=== PATIENT | male | born 1985 | race Two or more races ===

== ENCOUNTER 2017-07-06 09:12 | Day surgery (SDC) | payer BC ==
[~2017-07-06] VITALS: Ht 175.3 cm; Wt 68.0 kg
[2017-07-06] VITALS (9 sets, daily range): BP systolic 108–125; BP diastolic 56–75
[~2017-07-06 09:12] MED LIST: LR 1000ml 1,000 ML IVLG SCH
[2017-07-06] MEDS ORDERED: NKM (09:44)
--- NOTE | 2017-07-06 09:58 | Anethesia Preoperative Eval ---
Anesthesia Pre-op PMH/ROS General Date of Evaluation: Jul 06, 2017 Time of Evaluation: 09:55 Anesthesiologist: patt ASA Score: ASA 2 Mallampati Score Class I : Soft palate, uvula, fauces, pillars visible Class II: Soft palate, uvula, fauces visible Class III: Soft palate, base of uvula visible Class IV: Only hard plate visible Mallampati Classification: Class II Surgeon: clint Diagnosis: abdominal pain Surgical Procedure: egd/colonoscopy Anesthesia History: none Social History: smoking - nonsmoker Family History: no anesthesia problems Allergies: Coded Allergies: No Known Allergies (Unverified , 07/05/17) Medications: see eMAR Anesthesia Pre-op Phys. Exam Physician Exam Constitutional: NAD Neurologic: CN 2-12 intact Cardiovascular: RRR Respiratory: CTA Gastrointestinal: S/NT/ND Airway Exam Mallampati Score: Class II MO: full Neck: supple TMD: 2fb ROM: full Teeth: intact Anesthesia Pre-op A/P Risk Assessment & Plan Assessment: asa2 Plan: mac Status Change Before Surgery: No Pre-Antibiotics Drug: HEIKE Rodriguez Jul 06, 2017 09:58
[2017-07-06] MEDS ORDERED: Propofol 200mg/20ml IV ONE (10:00)
[2017-07-06] MEDS ORDERED: Atropine Inj 1mg/10ml Syr IV PRN (10:00)
[2017-07-06] MEDS ORDERED: LR 1000ml ONE (10:00)
[2017-07-06] MEDS ORDERED: Midazolam 2mg/2ml Inj IVP PRN (10:00)
[2017-07-06] MEDS ORDERED: Lidocaine 1% MPF 10mg/ml 5ml ONE (10:00)
[2017-07-06] MEDS ORDERED: DiphenhydrAMINE 50mg/ml Inj IVP PRN (10:00)
[2017-07-06] MEDS ORDERED: fentaNYL 100 mcg/2 mL IV PRN (10:00)
--- NOTE | 2017-07-06 10:24 | Short Stay Surgery H&P ---
History of Present Illness History of Present Illness Chief Complaint see attached H&P HPI Maximiliano Mendoza is a 32 year old male who was admitted on for Abdominal Pain Patient History Allergies: Coded Allergies: No Known Allergies (Unverified , 07/05/17) PAST MEDICAL HISTORY: Past Surgeries: Social History: Medication History Scheduled No Known Medications* (NKM - No Known Medications*), 0 ., (Reported) Plan Attestation Are the patient's medical conditions optimized for surgery? SILKE PRICE Jul 06, 2017 10:24
--- NOTE | 2017-07-06 10:25 | Pre-Procedure Note/Attestation ---
Pre-Procedure Note/Attestation Complete Prior to Procedure Planned Procedure: not applicable Procedure Narrative: Endoscopy and colonoscopy Indications for Procedure Pre-Operative Diagnosis: abd pain Attestation I attest that I discussed the nature of the procedure; its benefits; risks and complications; and alternatives (and the risks and benefits of such alternatives ), prior to the procedure, with the patient (or the patient's legal medical service representative). I attest that, if there was a reasonable possibility of needing a blood transfusion, the patient (or the patient's legal medical service representative) was given the [facility] standardized written summary, pursuant to the Wilver Armando Blood Safety Act ([place] Health and Safety Code # 1645, as amended). I attest that I re-evaluated the patient just prior to the surgery and that there has been no change in the patient's H&P, except as documented below: SILKE PRICE Jul 06, 2017 10:25
--- NOTE | 2017-07-06 12:44 | Immediate Post-Op Evaluation ---
Immediate Post-Op Evalulation Immediate Post-Op Evalulation Procedure: egd/colonoscopy Date of Evaluation: Jul 06, 2017 Time of Evaluation: 11:45 IV Fluids: 625ml lr Blood Products: none Estimated Blood Loss: negligible Blood Pressure Systolic: 125 Blood Pressure Diastolic: 56 Pulse Rate: 80 Respiratory Rate: 18 O2 Sat by Pulse Oximetry: 100 Temperature (Fahrenheit): 98.3 Pain Score (1-10): 0 Nausea: No Vomiting: No Complications none Patient Status: awake, reacts, patent Hydration Status: adequate Drug: HEIKE Rodriguez Jul 06, 2017 12:44
--- NOTE | 2017-07-06 12:46 | 48 Hour Post Anesthesia Eval ---
Post Anesthesia Evaluation Procedure: egd/colonoscopy Date of Evaluation: Jul 06, 2017 Time of Evaluation: 11:47 Blood Pressure Systolic: 117 0: 69 Pulse Rate: 84 Respiratory Rate: 18 Temperature (Fahrenheit): 98.3 O2 Sat by Pulse Oximetry: 100 Airway: patent Nausea: No Vomiting: No Pain Intensity: 0 Hydration Status: adequate Cardiopulmonary Status: stable Mental Status/LOC: patient returned to baseline Post-Anesthesia Complications: none Follow-up care needed: N/A HEIKE CANCINO Jul 06, 2017 12:46
--- NOTE | 2017-07-07 06:41 | Endoscopy Procedure Note ---
Endoscopy Procedure Note General Indication for Procedure: abd pain Procedures Performed: EGD, colonoscopy Operative Findings/Diagnosis: nl egd, mild granular TI, dim descending polyp Specimen: yes Pt Tolerated Procedure Well: Yes Estimated Blood Loss: none Anesthesia Anesthesiologist: Marvin Vargas Anesthesia: MAC Medications Medication Given: see anesthesia record Inserted Devices Implant(s) used?: No GI Core Measures 50 yrs or older w/o bx or poly: Not Applicable 10yrs. F/U not recommended: Not Applicable If not recommended, why?: SILKE PRICE Jul 07, 2017 06:41
--- NOTE | 2017-07-07 06:43 | Brief Operative Note ---
Immediate Post Operative Note Operative Note Chief Complaint: abd pain Pre-op Diagnosis: abd pain Procedure: EGD/Colon Post-op Diagnosis: normal EGD mildly granular TI - bx dim desc colon polyp Surgeon: taj Anesthesiologist: Marvin Vargas Specimen: yes Complications: none Condition: stable Fluids: recorded Estimated Blood Loss: none Drains: none Implant(s) used?: No SILKE PRICE Jul 07, 2017 06:43
--- NOTE | 2017-07-07 16:15 | Procedure Note ---
DATE OF PROCEDURE: 07/06/2017 NOTE: CANCELED DICTATION PROCEDURE: Upper gastrointestinal endoscopy with biopsy as well as colonoscopy with biopsy. SURGEON: Amy Love M.D. ANESTHESIA: Please see the separate anesthesiologist notes for details. PRE-ENDOSCOPIC DIAGNOSIS: Abdominal pain. POST-ENDOSCOPIC DIAGNOSES: 1. Normal upper endoscopy, status post biopsy. 2. Patchy mild granularity seen in the terminal ileum of doubtful significance, status post biopsy. 3. Diminutive descending colon polyp removed by biopsy. DESCRIPTION OF PROCEDURE: The procedure, its risks, indications, alternatives, and possible complications including, but not limited to bleeding, infection, perforation, , and anesthesia complications were explained to the patient and informed consent was obtained. The patient was then sedated in the left lateral decubitus position and a diagnostic upper endoscope was introduced through the oropharynx and advanced to the duodenum without difficulty. The endoscope was then gradually withdrawn and the mucosa examined carefully. Examination of the upper gastrointestinal mucosa revealed no significant abnormalities. Biopsy of the duodenum as well as the antrum were sent to pathology for review. Thereafter, the endoscope was removed, rectal exam was done and the colonoscope was introduced into the rectum and advanced to the terminal ileum for approximately 10 cm without difficulty. Amy Love M.D. DR: RACHID JOB#: [id number] CC:
--- NOTE | 2017-07-07 16:30 | Operative Note - Dictated ---
DATE OF OPERATION: 07/06/2017 GASTROENTEROLOGY PROCEDURE REPORT PROCEDURE: Upper gastrointestinal endoscopy with biopsy as well as colonoscopy with biopsy. SURGEON: Amy Love M.D. ANESTHESIA: Please see the separate anesthesiologist notes for details. PRE-ENDOSCOPIC DIAGNOSIS: Abdominal pain. POST-ENDOSCOPIC DIAGNOSES: 1. Normal upper endoscopy, status post biopsy. 2. Mild patchy granularity seen in terminal ileum of doubtful significance, status post biopsy. 3. Diminutive descending colon polyp, status post biopsy. DESCRIPTION OF PROCEDURE: The procedure, its risks, indications, alternatives, and possible complications were explained to the patient and an informed consent was obtained. The patient was then sedated in the left lateral decubitus position where a diagnostic upper endoscope was introduced through the oropharynx and advanced to the duodenum without difficulty. The endoscope was then gradually withdrawn and the mucosa examined carefully. The examination of the upper gastrointestinal mucosa did not reveal any abnormalities. Biopsies of the antrum and duodenum were sent to pathology for review. The endoscope was removed. The rectal exam was done and the colonoscope was introduced into the rectum and advanced into the terminal ileum for approximately 10 cm. The colonoscope was then gradually withdrawn and the mucosa examined carefully. Examination of the terminal ileum mucosa revealed a mild patchy granularity seen, which was of doubtful significance. These areas were biopsied and biopsies were sent to pathology for review. Biopsies of the normal right colon and normal left colon were also sent to pathology for review. In the distal descending colon, there was a diminutive polyp versus fold, which was biopsied off and sent to pathology. Retroflexed view of the rectum was unremarkable. The colonoscope was removed and the patient was sent to recovery in good condition. COMPLICATIONS: None. RECOMMENDATIONS: 1. Follow up biopsy results. 2. Outpatient followup. Amy Love M.D. DR: NINA JOB#: [id number] CC:
== END 2017-07-06 12:40 | disposition home or self-care (01) ==
LOC: GAS 09:12
DX: K63.5 Polyp of colon (principal); Z80.1 Family history of malignant neoplasm of trachea, bronchus and lung
CPT/HCPCS: 43239; 45380; J2704; J7120; 94003; 94150